=== PATIENT | male | born 1990 | race Hispanic/Latino ===

== ENCOUNTER 2022-07-14 03:23 | Emergency (ER) | payer SELFPAY ==
[2022-07-14 05:04] LABS: HEMATOCRIT 43.8 % (39.0-50.0); HEMOGLOBIN 14.9 g/dl (14.0-18.0); IMMATURE GRANULOCYTES 0.5 % (0.0-5.0); MEAN CELL VOLUME 88.3 fL CALC (80.0-100.0); NEUT# 3.73 thou/uL (1.82-7.42); RED BLOOD COUNT 4.96 mill/uL (4.70-6.10); RED CELL DISTRI WIDTH 12.2 % (11.5-15.5)
[2022-07-14 05:08] LABS: ALBUMIN 4.3 g/dL (3.2-5.0); ALKALINE PHOSPHATASE 134 u/l (38-126); AMYLASE 61 u/l (30-110); ANION GAP 10 (6-22 (CALC)); BILIRUBIN, TOTAL 1.4 mg/dL (0.0-1.4); BUN 10 mg/dL (9-20); BUN/CREATININE RATIO 13 (12-20 (CALC)); CARBON DIOXIDE 26 mmol/l (22-30); CHLORIDE 105 mmol/l (95-108); CREATININE 0.8 mg/dL (0.7-1.3); GFR FOR AFR.AMER. > 60 ML/MIN (>=60 (CALC)); GFR OTHER RACES > 60 ML/MIN (>=60 (CALC)); LIPASE 52 u/l (23-300); POTASSIUM 3.3 mmol/l (3.5-5.1); SGOT/AST 46 u/l (17-59); SODIUM 138 mmol/l (137-146); TOTAL PROTEIN 7.2 g/dL (6.3-8.2)
[2022-07-14 05:29] LABS: MYOGLOBIN 33 ng/mL (0 - 121)
[2022-07-14] MEDS ORDERED: LIBRIUM25 MG PO (06:05)
[2022-07-14 23:49] VITALS: BP 132/89
== END 2022-07-14 06:51 | disposition home or self-care (01) | DRG 897 ==
LOC: ED 03:55
PROVIDERS: Emergency Medicine
DX: F10.10 Alcohol abuse, uncomplicated (principal); S09.90XA Unspecified injury of head, initial encounter; F41.9 Anxiety disorder, unspecified; F17.290 Nicotine dependence, other tobacco product, uncomplicated; W19.XXXA Unspecified fall, initial encounter

== ENCOUNTER 2023-09-23 11:50 | Emergency (ER) | payer SELFPAY ==
[~2023-09-23] VITALS: Ht 172.7 cm; Wt 80.0 kg
[~2023-09-23 11:50] MED LIST: LIBRIUM25 MG PO
[2023-09-23 13:25] VITALS: BP 128/65
[2023-09-23 13:30] VITALS: BP 118/75
[2023-09-23 13:46] VITALS: BP 105/75
[2023-09-23] MEDS ORDERED: ZYRTEC10 MG PO (13:50)
[2023-09-23] MEDS ORDERED: ZPAK PO (13:50)
[2023-09-23 13:55] VITALS: BP 105/75
== END 2023-09-23 14:03 | disposition home or self-care (01) | DRG 153 ==
LOC: ED 11:50
DX: J06.9 Acute upper respiratory infection, unspecified (principal); Z72.0 Tobacco use; Z20.822 Contact with and (suspected) exposure to COVID-19